=== PATIENT | female | born 1945 | race Caucasian/White ===

== ENCOUNTER → 2025-05-11 14:23 | Outpatient (CLI) | payer MEDICARE, SELFPAY ==
--- NOTE | 2025-05-11 14:24 | DI.ECHO.S_ITS ---
[facility] : : [address] : : [place] : : [id number] : : Phone: [phone] Echocardiogram Report + + :Name: GLORIA JACKSON Study Date: 05/11/2025 Height: 62 in : :Hospital ReadingLocation: Weight: 165 lb : : Gender: Female BSA: 1.8 m2 : :: 1945 Age: 80 yrs BP: 141/84 mmHg: :Reason For Study: PHTN : :Ordering Physician: SERGO, : :SHORTY Performed By: Manjinder Terrell : :Referring: SHORTY TROTTER : + + Interpretation Summary Left ventricular wall thickness is mildly increased. The ejection fraction is estimated to be 60-65%. Diastolic function is indeterminate. The left atrium is mildly dilated. The right ventricle is normal in size and function. No significant valvular abnormalities. Pulmonary artery pressures cannot be estimated because of the lack of a measurable TR jet velocity but the IVC suggests a CVP of around 3 mmHg. The ascending aorta is mildly enlarged. Procedure: A two-dimensional transthoracic echocardiogram with color flow and Doppler was performed. The study quality was technically good. There is no prior echocardiogram noted for this patient. The patient was in normal sinus rhythm during the exam. Left Ventricle: The left ventricle is normal in size. Left ventricular wall thickness is mildly increased. There is no ventricular septal defect visualized. The ejection fraction is estimated to be 60-65%. There are no focal wall motion abnormalities. Diastolic function is indeterminate. Right Ventricle: The right ventricle is normal in size and function. Atria: The left atrium is mildly dilated. Right atrial size is normal. There is no Doppler evidence for an interatrial shunt. Mitral Valve: The mitral valve leaflets are mildly calcified. There is mild mitral annular calcification. There is no mitral regurgitation noted. Aortic Valve: The aortic valve is trileaflet. The aortic valve opens well. The aortic valve is mildly calcified. There is no aortic valve stenosis. No aortic regurgitation is present. Tricuspid Valve: The tricuspid valve leaflets are thin and pliable. There is trace tricuspid regurgitation. Pulmonary artery pressures cannot be estimated because of the lack of a measurable TR jet velocity but the IVC suggests a CVP of around 3 mmHg. Pulmonic Valve: The pulmonic valve is not well seen, but is grossly normal. There is no pulmonic valvular regurgitation. Great Vessels: The aortic root is normal size. The ascending aorta is mildly enlarged. The pulmonary artery is normal size. The IVC is of normal diameter and collapses greater than 50% with a sniff. This suggests a low right atrial pressure of 3 mm Hg. Pericardium/ Pleura There is no pericardial effusion. There is no pleural effusion. MMode/2D Measurements & Calculations LVIDd: 3.8 cm LVOT diam: 2.2 cm LVIDs: 2.3 cm Ao root diam: 3.4 cm FS: 39.1 % asc Aorta Diam: 3.8 cm EPSS: 0.50 cm Ao Arch Diam (Prox Trans): 2.0 cm IVSd: 1.1 cm LVPWd: 1.1 cm LV mcgee. diameter/BSA (cm/m^2): 2.1 LV sys. diameter/BSA (cm/m^2): 1.3 LA A2 area: 20.9 cm2 RA long axis: 5.7 cm LA A4 area: 18.8 cm2 RA area: 13.4 cm2 LA length (vol): 5.0 cm RA vol: 26.9 ml LA vol: 66.5 ml RA : 15.3 ml/m2 LA vol index: 37.8 ml/m2 IVC diam: 1.7 cm RVD1 (basal): 3.5 cm RVD2 (mid): 2.8 cm TAPSE: 3.0 cm Doppler Measurements & Calculations Ao V2 max: 135.3 cm/sec LVOT Max Mino: 98.3 cm/sec Ao V2 mean: 96.5 cm/sec LV V1 max P.9 mmHg Ao max P.3 mmHg LV V1 VTI: 22.6 cm Ao mean P.1 mmHg KISHA(I,D): 3.3 cm2 Ao V2 VTI: 27.2 cm KISHA(V,D): 2.8 cm2 sev ratio: 0.83 KISHA indexed to BSA (cm^2/m^2): 1.8 MV E max mino: 56.6 cm/sec TR max mino: 245.4 cm/sec MV A max mino: 96.7 cm/sec TR max P.1 mmHg MV E/A: 0.59 PA V2 max: 111.9 cm/sec Med Peak E' Mino: 3.6 cm/sec PA V2 mean: 75.1 cm/sec E/E' med: 15.7 PA mean P.5 mmHg Lat Peak E' Mino: 5.7 cm/sec PA pr(Accel): 56.7 mmHg E/E' lat: 9.9 E/e' average: 12.8 MV dec time: 0.21 sec SV(LVOT): 88.5 ml Reading Physician:06:13 PM
== END ==
PROVIDERS: Referring Provider Student in an Organized Health Care Education/Training Program; Visit Provider Student in an Organized Health Care Education/Training Program
DX: I34.81 Nonrheumatic mitral (valve) annulus calcification (principal); I27.20 Pulmonary hypertension, unspecified; I77.89 Other specified disorders of arteries and arterioles
CPT/HCPCS: 93306